=== PATIENT | female | born 1985 | race Two or more races ===

== ENCOUNTER 2017-03-22 13:28 | Emergency (ER) | payer OTHER ==
[~2017-03-22] VITALS: Ht 149.9 cm; Wt 72.1 kg
--- NOTE | 2017-03-22 14:32 | Emergency Room Report ---
History of Present Illness General Chief Complaint: Upper Respiratory Illness Source: Patient Present Illness HPI 31 YO female presents to the ED c/o wheeze-like cough, nasal congestion, rhinorrhea, with 2/10 in severity generalized body-aches, chills and headaches x 8 days. denies fevers, neck pain, neck stiffness, photophobia. Denies Sore throat. denies obvious bright red blood in phlegm pt. reports faint pink appearance in mucus this am. [place] pt. states her father has had same symptoms for same duration and is also here for evaluation. Denies Pmhx other than intermittent bronchitis. She reports being otherwise healthy except for current cough/cold symptoms. Denies CP, Palpitations, LOC, AMS, dizziness, Changes in Vision, Sensation, paresthesias, or a sudden severe headache. Allergies: Coded Allergies: No Known Allergies (Unverified , 03/22/17) Patient History Past Medical History: see triage record Past Surgical History: none Pertinent Family History: none Last Menstrual Period: 02/26/17. Now: No Reviewed Nursing Documentation: PMH: Agreed, PSxH: Agreed Nursing Documentation-PMH Past Medical History: No Stated History Review of Systems All Other Systems: negative except mentioned in HPI Physical Exam Vital Signs Date Time Temp Pulse Resp B/P (MAP) Pulse Ox O2 Delivery O2 Flow Rate FiO2 03/22/17 13:44 98.4 74 21 121/85 97 Room Air Sp02 EP Interpretation: reviewed, normal General Appearance: no apparent distress, alert, GCS 15, non-toxic Head: normocephalic, atraumatic Eyes: bilateral eye normal inspection, bilateral eye PERRL ENT: hearing grossly normal, normal pharynx, no angioedema, normal voice, TMs + canals normal, uvula midline, nasal congestion, pharyngeal erythema Neck: full range of motion, no meningismus, no bony tend Respiratory: chest non-tender, lungs clear, normal breath sounds, no respiratory distress, no wheezing, speaking full sentences Cardiovascular #1: regular rate, rhythm, normal capillary refill Gastrointestinal: non tender, soft Musculoskeletal: back normal, gait/station normal, normal range of motion, non- tender Neurologic: alert, oriented x3, responsive, motor strength/tone normal, sensory intact, speech normal Skin: normal color, no rash, warm/dry, well hydrated Lymphatic: no adenopathy Medical Decision Making PA Attestation Dr. Hernandes is my supervising Physician whom patient management has been discussed with. Diagnostic Impression: Primary Impression: Upper respiratory infection Qualified Codes: J06.9 - Acute upper respiratory infection, unspecified; B97.89 - Other viral agents as the cause of diseases classified elsewhere ER Course 31 YO female presents to the ED c/o wheeze-like cough, nasal congestion, rhinorrhea, with 2/10 in severity generalized body-aches, chills and headaches x 8 days. denies fevers, neck pain, neck stiffness, photophobia. Denies Sore throat. denies obvious bright red blood in phlegm pt. reports faint pink appearance in mucus this am. [place]. [place] pt. states her father has had same symptoms for same duration and is also here for evaluation. Denies Pmhx other than intermittent bronchitis. She reports being otherwise healthy except for current cough/cold symptoms. Denies CP, Palpitations, LOC, AMS, dizziness, Changes in Vision, Sensation, paresthesias, or a sudden severe headache. Ddx considered but are not limited to URI, pneumonia, PE, strep pharyngitis, meningitis. Vital signs: Pt. is afebrile, the remaining VS are WNL, non-toxic in appearance , NAD. H&PE are most consistent with URI- no meningeal signs, oropharynx is not involved, no evidence of bacterial infection at this time. ORDERS: none required at this time, the diagnosis is clinical ED INTERVENTIONS: None required at this time. --PT. EDUCATION: Discussed antibiotic resistance with inappropriate prescribing of antibiotics for viral illnesses. Discussed signs and symptoms to indicate viral illness versus bacterial illness. d/w pt. conservative treatment, and to follow up with a primary care provider. pt given a list of primary care clinics for follow up. d/w pt. to return to the ED with worsening or new symptoms. DISCHARGE: At this time pt. is stable for d/c to home. Will provide printed patient care instructions, and any necessary prescriptions. Care plan and follow up instructions have been discussed with the patient prior to discharge. Last Vital Signs Date Time Temp Pulse Resp B/P (MAP) Pulse Ox O2 Delivery O2 Flow Rate FiO2 03/22/17 13:44 98.4 74 21 121/85 97 Room Air Disposition: HOME, SELF-CARE Condition: Stable Scripts Acetaminophen* (TYLENOL EXTRA STRENGTH*) 500 Mg Tablet 500 MG ORAL Q6H Y for Mild Pain/Temp > 100.5, #20 TAB 0 Refills Prov: Argelia Gamez 03/22/17 Albuterol Sulfate* (ALBUTEROL SULFATE MDI*) 8.5 Gm Hfa.aer.ad 2 PUFF INH Q3H, #1 INH 0 Refills Prov: Argelia Gamez 03/22/17 Guaifenesin (Guaifenesin) 1,200 Mg Tab.er.12h 1200 MG PO BID, #20 TAB Prov: Argelia Gamez 03/22/17 Codeine/Promethazine Hcl* (PROMETHAZINE-CODEINE SYRUP*) 118 Ml Syrup 5 ML ORAL Q6H Y for For Cough, #118 ML 0 Refills Prov: Argelia Gamez 03/22/17 Referrals: NOT CHOSEN IPA/MD,REFERRING (PCP) Patient Instructions: Upper Respiratory Infection, Adult Additional Instructions: Take medications as directed. Follow up with a Primary Care Provider in 3-5 days, even if your symptoms have resolved. --Please review list of primary care clinics, if you do not already have a primary care provider Return sooner to ED if new symptoms occur, or current symptoms become worse. Do not drink alcohol, drive, or operate heavy machinery while taking Cough Syrup as this may cause drowsiness. - Please note that this Emergency Department Report was dictated using [email or web address] straightener technology software, occasionally this can lead to erroneous entry secondary to interpretation by the dictation equipment. Argelia Gamez Mar 22, 2017 14:32
[2017-03-22] MEDS ORDERED: GUAIFENESIN1200 MG PO (14:40)
[2017-03-22] MEDS ORDERED: TYLENOL EXTRA500 MG ORAL (14:40)
[2017-03-22] MEDS ORDERED: PROMETHAZINE-C118 M1 ORAL (14:40)
[2017-03-22] MEDS ORDERED: ALBUTEROL SULF8.5 GM INH (14:40)
[2017-03-22 14:48] VITALS: BP 121/85
[2017-03-22 14:49] VITALS: BP 121/85
== END 2017-03-22 14:50 | disposition home or self-care (01) ==
LOC: EDBD 13:28 → EMR 13:58
DX: J06.9 Acute upper respiratory infection, unspecified (principal); B97.89 Other viral agents as the cause of diseases classified elsewhere
CPT/HCPCS: 99283